=== PATIENT | female | born 1985 | race Caucasian/White ===

== ENCOUNTER → 2016-10-31 10:14 | Outpatient (CLI) | payer MEDICAID ==
[2014-02-09 11:55] VITALS: BMI 26.7
[~2016-10-31 10:14] MED LIST: HYDROCODON-ACE1 EAC7 PO; INDERAL10 MG PO; SPRINTEC1 TAB PO; SYNTHROID125 MCG PO; WELLBUTRIN XL150 M1 PO; XANAX0.25 MG PO
[2016-10-31 13:32] LABS: APPEARANCE CLEAR (CLEAR); BACTERIA FEW /hpf (NONE SEEN); BILIRUBIN NEGATIVE (NEGATIVE); COLOR YELLOW (YELLOW); EPITHELIAL CELLS 0-5 /hpf (0-5); GLUCOSE NEGATIVE (NEGATIVE); KETONE NEGATIVE (NEGATIVE); LEUKOCYTE ESTERASE TRACE (NEGATIVE); MUCUS >1+ /lpf (NONE SEEN); NITRITE NEGATIVE (NEGATIVE); PROTEIN NEGATIVE (NEGATIVE); RED CELLS - URINE 0-5 /hpf (0-5); UROBILINOGEN NORMAL (NORMAL); WHITE CELLS - URINE OCC /hpf (0-5)
== END | disposition home or self-care (01) ==
LOC: D.LDO 10:14
PROVIDERS: Obstetrics & Gynecology
DX: O26.852 Spotting complicating pregnancy, second trimester (principal); Z3A.23 23 weeks gestation of pregnancy

== ENCOUNTER → 2016-12-08 13:08 | Outpatient (CLI) | payer MEDICAID ==
[2014-02-09 11:55] VITALS: BMI 26.7
[2016-12-08 13:48] LABS: BASOPHILS 0.2 % (0-2); EOSINOPHILS 0.9 % (0-7); HEMATOCRIT 31.8 % (36.0-48.0); HEMOGLOBIN 10.9 g/dL (12-16); IMMATURE GRANULOCYTES 0.6 % (0-5); LYMPHOCYTES 13.4 % (15-50); MCH 31.1 pg (26.0-34.0); MCHC 34.3 g/dL (31.0-37.0); MCV 90.9 fL (80.0-100.0); MEAN PLATELET VOLUME 9.6 fL (7.4-10.4); MONOCYTES 4.9 % (2-11); PLATELET COUNT 198 10x3/uL (130-400); RDW 12.8 % (11.5-14.5)
[2016-12-08 13:52] LABS: APPEARANCE HAZY (CLEAR); BILIRUBIN NEGATIVE (NEGATIVE); COLOR YELLOW (YELLOW); GLUCOSE NEGATIVE (NEGATIVE); KETONE NEGATIVE (NEGATIVE); LEUKOCYTE ESTERASE TRACE (NEGATIVE); NITRITE NEGATIVE (NEGATIVE); PROTEIN TRACE mg/dL (NEGATIVE); UROBILINOGEN NORMAL (NORMAL)
[2016-12-08 14:05] LABS: RED CELLS - URINE 0-5 /hpf (0-5); WHITE CELLS - URINE 25-50 /hpf (0-5)
[2016-12-08 14:06] LABS: BACTERIA MANY /hpf (NONE SEEN); HYALINE CAST RARE /lpf (NONE SEEN); MUCUS <1+ /lpf (NONE SEEN)
[2016-12-08 14:11] LABS: CALC OSMOLALITY 278 mosm/kg (275-300); CALCIUM 8.5 mg/dL (8.5-10.1); CHLORIDE - SERUM 106 mmol/L (98-107); CREATININE - SERUM 0.7 mg/dL (0.6-1.3); GLUCOSE 97 mg/dL (74-106); POTASSIUM - SERUM 4.1 mmol/L (3.5-5.1); SODIUM 141 mmol/L (136-145); UREA NITROGEN 7 mg/dL (7-18); eGFR NON AFRICAN AMERICAN > 90 mL/min (90-120)
== END | disposition home or self-care (01) ==
LOC: D.LDO 13:08
PROVIDERS: Obstetrics & Gynecology
DX: Z34.83 Encounter for supervision of other normal pregnancy, third trimester (principal); Z3A.28 28 weeks gestation of pregnancy; R42 Dizziness and giddiness

== ENCOUNTER → 2016-12-17 14:28 | Outpatient (CLI) | payer MEDICAID ==
[2014-02-09 11:55] VITALS: BMI 26.7
[2016-12-17 15:19] LABS: APPEARANCE CLEAR (CLEAR); COLOR YELLOW (YELLOW)
[2016-12-17 15:20] LABS: BILIRUBIN NEGATIVE (NEGATIVE); GLUCOSE NEGATIVE (NEGATIVE); KETONE NEGATIVE (NEGATIVE); LEUKOCYTE ESTERASE NEGATIVE (NEGATIVE); NITRITE NEGATIVE (NEGATIVE); PROTEIN NEGATIVE (NEGATIVE); UROBILINOGEN NORMAL (NORMAL)
== END | disposition home or self-care (01) ==
LOC: D.LDO 14:28
PROVIDERS: Obstetrics & Gynecology
DX: Z34.83 Encounter for supervision of other normal pregnancy, third trimester (principal); Z3A.29 29 weeks gestation of pregnancy; R10.9 Unspecified abdominal pain; R42 Dizziness and giddiness

== ENCOUNTER → 2016-12-21 13:06 | Outpatient (CLI) | payer MEDICAID ==
[2014-02-09 11:55] VITALS: BMI 26.7
== END | disposition home or self-care (01) ==
LOC: D.LDO 13:06
DX: Z34.83 Encounter for supervision of other normal pregnancy, third trimester (principal); Z3A.30 30 weeks gestation of pregnancy; R03.0 Elevated blood-pressure reading, without diagnosis of hypertension

== ENCOUNTER → 2016-12-28 09:40 | Outpatient (CLI) | payer MEDICAID ==
[2014-02-09 11:55] VITALS: BMI 26.7
[2016-12-28 11:01] LABS: APPEARANCE CLEAR (CLEAR); BILIRUBIN NEGATIVE (NEGATIVE); COLOR YELLOW (YELLOW); GLUCOSE NEGATIVE (NEGATIVE); KETONE NEGATIVE (NEGATIVE); LEUKOCYTE ESTERASE TRACE (NEGATIVE); NITRITE NEGATIVE (NEGATIVE); PROTEIN NEGATIVE (NEGATIVE); UROBILINOGEN NORMAL (NORMAL)
== END | disposition home or self-care (01) ==
LOC: D.LDO 09:40
PROVIDERS: Obstetrics & Gynecology
DX: O36.8130 Decreased fetal movements, third trimester, not applicable or unspecified (principal); Z3A.31 31 weeks gestation of pregnancy; R53.81 Other malaise

== ENCOUNTER → 2017-01-01 09:34 | Outpatient (CLI) | payer MEDICAID ==
[2014-02-09 11:55] VITALS: BMI 26.7
== END | disposition home or self-care (01) ==
LOC: D.LDO 09:34
DX: Z34.83 Encounter for supervision of other normal pregnancy, third trimester (principal); Z3A.32 32 weeks gestation of pregnancy

== ENCOUNTER → 2017-01-23 11:54 | Outpatient (CLI) | payer MEDICAID ==
[2014-02-09 11:55] VITALS: BMI 26.7
[2017-01-23 12:50] LABS: APPEARANCE CLEAR (CLEAR); BILIRUBIN NEGATIVE (NEGATIVE); COLOR STRAW (YELLOW); GLUCOSE NEGATIVE (NEGATIVE); KETONE NEGATIVE (NEGATIVE); LEUKOCYTE ESTERASE NEGATIVE (NEGATIVE); NITRITE NEGATIVE (NEGATIVE); PROTEIN NEGATIVE (NEGATIVE); SPECIFIC GRAVITY 1.005 (1.005-1.020); UROBILINOGEN NORMAL (NORMAL)
== END | disposition home or self-care (01) ==
LOC: D.LDO 11:54
PROVIDERS: Obstetrics & Gynecology
DX: O26.853 Spotting complicating pregnancy, third trimester (principal); Z3A.35 35 weeks gestation of pregnancy

== ENCOUNTER → 2017-02-01 11:44 | Outpatient (CLI) | payer MEDICAID ==
[2014-02-09 11:55] VITALS: BMI 26.7
== END | disposition home or self-care (01) ==
LOC: D.LDO 11:44
DX: Z34.93 Encounter for supervision of normal pregnancy, unspecified, third trimester (principal); Z3A.36 36 weeks gestation of pregnancy; R03.0 Elevated blood-pressure reading, without diagnosis of hypertension

== ENCOUNTER 2017-02-19 05:09 | Inpatient (IN) | payer MEDICAID ==
[2017-02-19] MEDS ORDERED: PROTONIX40 MG PO (05:32)
[2017-02-19 05:59] VITALS: BP 141/84; BMI 34.1
[2017-02-19 06:29] LABS: HEMOGLOBIN 10.6 g/dL (12-16); MCH 27.4 pg (26.0-34.0); MCHC 32.1 g/dL (31.0-37.0); MCV 85.3 fL (80.0-100.0); MEAN PLATELET VOLUME 10.3 fL (7.4-10.4); RBC 3.87 10x6/uL (4.00-5.40); RDW 13.8 % (11.5-14.5); WBC 8.7 10x3/uL (4.8-10.8)
[2017-02-19 07:58] LABS: APPEARANCE CLOUDY (CLEAR); BILIRUBIN NEGATIVE (NEGATIVE); COLOR YELLOW (YELLOW); GLUCOSE 100 mg/dL (NEGATIVE); KETONE SMALL mg/dL (NEGATIVE); NITRITE NEGATIVE (NEGATIVE); PROTEIN NEGATIVE (NEGATIVE); SPECIFIC GRAVITY 1.015 (1.005-1.020); UROBILINOGEN NORMAL (NORMAL)
[2017-02-19 07:59] LABS: BACTERIA MANY /hpf (NONE SEEN); MUCUS <1+ /lpf (NONE SEEN)
--- NOTE | 2017-02-19 22:00 | NUR ---
ROUNDS MADE. PT LYING AWAKE IN BED WATCHING TV. PAIN AND NEEDS ASSESSED. PT REPORTS LOWER BACK PAIN IS BETTER NOW. DENIES NEEDS. REPORTS SOME TINGLING REMAINS TO LLE. SPOUSE AT PT'S BEDSIDE.
--- NOTE | 2017-02-19 22:48 | NUR ---
PT'S SPOUSE TO NURSING DESK. REPORTS PT IS NOW C/O BURNING AT [facility]. REQUEST ICE CAP. ICE CAP PROVIDED W/ADDITIONAL ONES FOR LATER ALONG WITH DERMAPLAST SPRAY. TEACHING PROVIDED. FRESH ICE WATER SERVED IN [facility]. NO FURTHER NEEDS VOICED AT THIS TIME.
--- NOTE | 2017-02-19 23:40 | NUR ---
PT CALLS NURSING STATION. REPORTS ABD CRAMPING. REQUEST ADDITIONAL PAIN MEDICATION. NORCO 5/325MG ONE TAB PO GIVEN FOR PAIN RATED 5/10. NO FURTHER NEEDS VOICED AT THISTIME.
--- NOTE | 2017-02-20 01:00 | NUR ---
ROUNDS MADE. PT LYING AWAKE IN BED IN SUPINE POSITION WITH LIGHTS DOWN. DENIES NEEDS. REPORTS PAIN IS BETTER. RATES 2/10. SPOUSE SLEEPING ON PULL CHAIR.
--- NOTE | 2017-02-20 02:59 | NUR ---
ROUNDS MADE. PT LYING SUPINE IN BED W/EYES CLOSED. RESP EVEN. NO DISTRESS NOTED. PT LEFT UNDISTURBED AT THIS TIME.
--- NOTE | 2017-02-20 04:00 | NUR ---
ROUNDS MADE. PT CURRENTLY NURSING INFANT. PAIN AND NEEDS ASSESSED. PT REQUEST MOTRIN FOR CRAMPING AND FRESH ICE WATER. MOTRIN 600MG PO ADMIN AND ICE WATER SERVED. NO FURTHER NEEDS VOICED AT THIS TIME.
--- NOTE | 2017-02-20 06:45 | NUR ---
ROUNDS MADE. PT SITTING UP IN BED W/INFANT TO BREAST. PAIN AND NEEDS ASSESSED. PT DENIES NEEDS OR PAIN AT PRESENT.
[2017-02-20 07:27] LABS: RAPID PLASMA REAGIN Non Reactive (Non Reactive)
[2017-02-20 07:36] VITALS: BP 129/87
--- NOTE | 2017-02-20 07:59 | NUR ---
RCVD PT FROM David TOBAR RN. PT SITTING UP IN BED EATING BREAKFAST AT THIS TIME AAOX3. RATES PAIN 1/10 AND TOLERABLE AT THIS TIME. PT REPORTS WILL SHOWER WHEN FINISHED WITH MEAL. BREATH SOUNDS CLEAR & UNLABORED X2, HR-RRR, PPP, BOWEL SOUNDS ACTIVE X4, PIV SL IN LT FOREARM WITH NO SIGNS OF ERYTHEMA OR EDEMA NOTED TO SITE. NO EDEMA NOTED TO BLE. FUNDUS FIRM, U/2. SCANT LOCHIA RUBRA NOTED TO PERIPAD. PT DENIES FURTHER NEEDS. BED LOW, WHEELS LOCKED, CL IN REACH, SIDE RAILS UP X2.
--- NOTE | 2017-02-20 08:22 | NUR ---
ROUNDS MADE. PT SITTING UP IN BED VISITING WITH GUESTS IN ROOM. PT DENIES PAIN OR NEEDS AT THIS TIME. WILL CONT TO MONITOR.
--- NOTE | 2017-02-20 09:14 | NUR ---
ROUNDS MADE. PT INQUIRES ABOUT MOTRIN AVAILABILITY. ADV PT SHE CAN HAVE IT IN 1 HR. PT VERBALIZED UNDERSTANDING AND DENIES FURTHER NEEDS AT THIS TIME. WILL CONT TO MONITOR.
--- NOTE | 2017-02-20 10:09 | NUR ---
MOTRIN 600MG X1 TAB GIVEN FOR PAIN RATED 2/10 DESCRIBED CRAMPING AT THIS TIME. PT DESIRES ASSISTANCE. SAME PROVIDED PER THIS RN. LATCHED ONTO LT BREAST AT THIS TIME. EDU PT ON FEEDING 15-20 MINS EACH SIDE AND TO CALL IF ASSISTANCE IS NEEDED WHEN RELATCHING. PT VERBALIZED UNDERSTANDING AND DENIES FURTHER NEEDS. WILL CONT TO MONITOR.
[2017-02-20 10:28] LABS: BASOPHILS 0.1 % (0-2); HEMATOCRIT 26.5 % (36.0-48.0); HEMOGLOBIN 8.6 g/dL (12-16); IMMATURE GRANULOCYTES 0.2 % (0-5); LYMPHOCYTES 18.1 % (15-50); MCH 27.9 pg (26.0-34.0); MCHC 32.5 g/dL (31.0-37.0); MEAN PLATELET VOLUME 10.1 fL (7.4-10.4); MONOCYTES 5.9 % (2-11); NEUTROPHILS 74.7 % (40-80); RDW 13.9 % (11.5-14.5); WBC 8.7 10x3/uL (4.8-10.8)
--- NOTE | 2017-02-20 10:42 | NUR ---
PAIN REASSESSMENT COMPLETE. PT REPORTS CRAMPING STILL NOTICABLE AND IS AT THIS TIME. TEACHING PROVIDED ON BF INCREASING CRAMPING. PT VERBALIZES UNDERSTANDING AND DENIES FURTHER NEEDS. WILL CONT TO MONITOR.
[2017-02-20 10:51] LABS: PLATELET COUNT 202 10x3/uL (130-400); RBC 3.08 10x6/uL (4.00-5.40)
--- NOTE | 2017-02-20 12:58 | NUR ---
NORCO 5/325MG X1 TAB GIVEN PER David CABRAL, STUDENT RN AT THIS TIME. PT RATES PAIN 5/10 DESCRIBED CRAMPING WHILE INFANT. PT DENIES FURTHER NEEDS. WILL CONT TO MONITOR.
--- NOTE | 2017-02-20 13:36 | NUR ---
PAIN REASSESSMENT COMPLETE. PT RATES PAIN 1/10 AT THIS TIME AND DENIES FURTHER NEEDS.
--- NOTE | 2017-02-20 14:27 | NUR ---
ROUNDS MADE. PT VISITING WITH GUESTS IN ROOM. IN GUEST'S ARMS. ICE WATER PROVIDED PER PT REQUEST. PT DENIES FURTHER NEEDS OR PAIN AT THIS TIME.
--- NOTE | 2017-02-20 15:30 | NUR ---
PT RINGS CL. RN TO BEDSIDE. PT REPORTS CRAMPING AND INQUIRES ABOUT PAIN MEDICATION. ADV PT MOTRIN IS AVAILABLE IN 30 MINS. PT VERBALIZED UNDERSTANDING AND DENIES FURTHER NEEDS.
--- NOTE | 2017-02-20 15:41 | NUR ---
MOTRIN 600MG X1 TAB GIVEN PER PT REQUEST FOR PAIN RATED 2/10 AT THIS TIME DESCRIBED CRAMPING. PT DENIES FURTHER NEEDS. WILL CONT TO MONITOR.
--- NOTE | 2017-02-20 16:36 | NUR ---
ROUNDS MADE. PT RATES PAIN 0/10 AT THIS TIME AND DENIES FURTHER NEEDS. WILL CONT TO MONITOR.
--- NOTE | 2017-02-20 17:15 | NUR ---
ROUNDS MADE. MEAL TRAY SERVED AT THIS TIME. PT DENIES PAIN OR CURRENT NEEDS. WILL CONT TO MONITOR.
--- NOTE | 2017-02-20 18:35 | NUR ---
PT REPORTS LABIAL IRRITATION DUE TO LACERATION. LABIA INSPECTED WITH NO EDEMA NOTED TO SITE. ADV PT TO USE PERIBOTTLE WHEN VOIDING. PT VERBALIZED UNDERSTANDING.
[2017-02-20 19:10] VITALS: BP 139/81
--- NOTE | 2017-02-20 19:10 | NUR ---
AWAKE DURING INITIAL ROUNDS. INTRODUCED SELF. V/S TAKEN. ASSESSMENT DONE. STATUS POST VAG DELIVERY WITH REPAIRED LABIAL LACERATION--DAY 1. A1. DOIDING WELL, KEITH ROMERO LIGHT PER PATIENT. UTERINE CRAMPING WHEN . AT BREAT AT THIS TIME. BONDING WELL. FOB IN THE ROOM.
--- NOTE | 2017-02-20 19:21 | NUR ---
NORCO 5/325 1tab PO GIVEN FOR PAIN CONTROL FROM UTERINE CRAMPING.
--- NOTE | 2017-02-20 19:25 | NUR ---
AWAKE DURING BEDSIDE SHIFT REPORT/ROUNDS. INTRODUCED SELF. V/S TAKEN. ASSESSMENT DONE. STATUS POST REPEAT C/S + BILATERAL TUBAL LIGATION TODAY. . LOW TRANSVERSE INCISION WITH ST-STRIPS INTACT. IBF--NS + 20units PITOCIN TO R HAND. IV SITE OK. AVILES CATH TO DRAINAGE BAG PATENT. SCD's TO BOTH LOWER EXTREMITIES TO PREVENT DVT. INFANT IN THE ROOM. FAMILY/FRIENDS VISITING. ON DEMEROL BOTANY LABORATORY ASSISTANT FOR PAIN MANAGEMENT.
--- NOTE | 2017-02-20 21:51 | NUR ---
CALL LIGHT ANSWERED. MOTRIN 600mg 1tab PO GIVEN FOR PAIN CONTROL. INFANT IN HER ARMS. FOB HERE.
--- NOTE | 2017-02-20 22:40 | NUR ---
HER BABY. GOOD -MATERNAL BONDING.
[2017-02-21 00:15] VITALS: BP 135/76
--- NOTE | 2017-02-21 02:00 | NUR ---
EYES CLOSED. LEFT UNDISTURBED.
--- NOTE | 2017-02-21 04:00 | NUR ---
INFANT. BONDING WELL.
--- NOTE | 2017-02-21 06:13 | NUR ---
CALL LIGHT ANSWERED. PAIN LEVEL 5/10 FROM UTERINE CRAMPING AND PERINEUM. MOTRIN 600mg 1 tab / NORCO 5/325 1tab PO GIVEN FOR PAIN MANAGEMENT. EPIFOAM GIVEN WITH INSTRUCTIONS ON HOW TO USE. SLEPT ON AND OFF DURING THE NIGHT. CONTINUING PLAN OF CARE.
--- NOTE | 2017-02-21 07:30 | NUR ---
PT IS RECEIVED THIS AM SITTING UP IN BED. BABY AT BEDSIDE. PT STATES THAT HER PAIN IS ABOUT A 1. GEN- AWAKE AND ALERT- LUNGS- CLEAR. HEART- RRR. ABD- SOFT, WITH TENDERNESS NOTED. SMALL LOCIA RUBRA. BS+. EXT- MINIMAL EDEMA LE. SALINE LOCK NOTED R WRIST. BED IS LOW, SIDE RAILS UP X 2 AND CALL LIGHT IN REACH.
[2017-02-21 07:31] VITALS: BP 127/75
--- NOTE | 2017-02-21 08:02 | NUR ---
SALINE LOCK D'CD. TIP INTACT.
--- NOTE | 2017-02-21 09:17 | NUR ---
PT WOULD LIKE TO GO HOME. CALLED DR. JIMÉNEZ. HE STATES THAT HE HAS SEEN PT AND THAT SHE MAY BE DISCHARGED.
--- NOTE | 2017-02-21 09:32 | NUR ---
DR MORAN, SCANNING SUPERVISOR IS HERE TO SEE PT. SHE WANTS PT TO SUPPLEMENT TOE NEXT 2 FEEDINGS AND IF BABY DOES WELL THEN THEY CAN GO HOME.
[2017-02-21] MEDS ORDERED: HYDROCODON-ACE1 EAC7 PO (09:34)
[2017-02-21] MEDS ORDERED: IBUPROFEN600 MG PO (09:34)
--- NOTE | 2017-02-21 11:35 | NUR ---
PT REQUESTED PAIN MED. GIVEN.
--- NOTE | 2017-02-21 12:30 | NUR ---
pt is resting in bed. and baby at bedside. offers no complaints
--- NOTE | 2017-02-21 13:30 | NUR ---
PT WAS TRANSFERRED TO [facility]. PT IN BED. BED IS LOW, SIDE RAILS UP X 2 AND CALL LIGHT IN REACH.
--- NOTE | 2017-03-26 09:56 | DS ---
PATIENT:MAURILIO ZAMORA :83 MEDICAL RECORD: [id number] DISCHARGE SUMMARY ADMISSION DATE: 02/19/17 DISCHARGE DATE: 02/21/17 DATE OF ADMISSION: 02/19/2017 HOSPITAL COURSE: A 31-year-old G2, P1 at 39 weeks and 0 days, admitted for induction of labor per patient wishes. The patient was noted to be A positive, group B strep negative and rubella immune. PAST MEDICAL HISTORY: Significant for: 1. PENICILLIN ALLERGY. 2. Hypothyroidism. 3. History of an abnormal Pap. 4. Gastroesophageal reflux disease. 5. Depression/anxiety. PAST SURGICAL HISTORY: The patient reported a surgical history significant for a partial thyroidectomy. ALLERGIES: THE PATIENT REPORTED ALLERGIES TO PENICILLIN. MEDICATIONS: Include Protonix and Synthroid. FAMILY HISTORY: The patient reported no significant family history. SOCIAL HISTORY: Significant for being a former tobacco user. PHYSICAL EXAMINATION: VITAL SIGNS: On initial assessment, the patient was noted to be mildly tachycardic at admission, which resolved very soon thereafter. The patient was with elevated blood pressure of 141/84. Both of these symptoms on admission were felt to be due to anxiety as the patient became normotensive with a normal rate and rhythm very soon after admission. LUNGS: Clear to auscultation. CARDIOVASCULAR: With normal heart sounds, slight tachycardia at admission, which resolved. LUNGS: Clear to auscultation. PELVIC: Uterus was appropriately sized and nontender. EXTREMITIES: Lower extremities were free of Homans sign. Initial assessment with a category 1 tracing in the 140s with moderate variability and hemoglobin was found to be 10.6 with a platelet count of 257. ASSESSMENT AND PLAN: At that time: 1. Term intrauterine at 39 weeks. 2. Induction of labor per patient wishes. 3. Anemia. 4. Tachycardia admission, which resolved at the next vitals check. 5. PENICILLIN ALLERGY. 6. Hypothyroidism. 7. History of depression and anxiety. Assessment and plan at that time was for Pitocin induction of labor, rupture of membranes when appropriate, tachycardia upon admission, now which has been DISCHARGE SUMMARY REPORT [id number] MAURILIO ZAMORA resolved. No evidence of lower extremity DVT. with a category 1 tracing. The patient progressed on Pitocin to 4 cm at which point spontaneous rupture of membranes occurred with clear fluid and fetus with a category 1 tracing. The patient progressed to the second stage of labor and had a spontaneous vaginal delivery over an intact perineum. Delivery note is as on the chart. The patient did well overnight on day #0. On the morning of day #1, was doing well, tolerating p.o. pain meds and general diet, ambulating and voiding freely. Vital signs are stable. The patient was afebrile. Hemoglobin was found to be stable. The patient stayed overnight and on day #2. The patient continued to do well. Vital signs are stable. The patient was afebrile. Hemoglobin 8.6. Uterus is infraumbilical and nontender with minimal lochia. Plan at that time for discharge home with instructions to follow up in 4 weeks. TRANSINT:[id number] Voice Confirmation ID: [id number] DOCUMENT ID: [id number] MIKEL JIMÉNEZ MD at [id number] CC: [id number] DICTATION DATE: 03/24/17 1333 LIMOUSINE RENTAL CLERK: 03/25/17 0039 DIS IN 02/21/17 [id number] [place] [address]
== END 2017-02-21 14:00 | disposition home or self-care (01) | DRG 775 ==
LOC: D.LD 05:09 → D.WS 21:15
PROVIDERS: ADMIT Obstetrics & Gynecology
PROC: 10E0XZZ Delivery of Products of Conception, External Approach (ICD-10-PCS; principal; 2017-02-19)
PROC: 0KQM0ZZ Repair Perineum Muscle, Open Approach (ICD-10-PCS; 2017-02-19)
DX: O99.02 Anemia complicating childbirth (principal); Z37.0 Single live birth; Z3A.39 39 weeks gestation of pregnancy; O99.214 Obesity complicating childbirth; E66.01 Morbid (severe) obesity due to excess calories; Z68.32 Body mass index [BMI] 32.0-32.9, adult; O75.89 Other specified complications of labor and delivery; R00.0 Tachycardia, unspecified; E03.9 Hypothyroidism, unspecified; O42.92 Full-term premature rupture of membranes, unspecified as to length of time between rupture and onset of labor

== ENCOUNTER 2018-07-29 15:00 | Emergency (ER) | payer BC ==
[~2018-07-29] VITALS: Ht 174 cm; Wt 90.9 kg
[~2018-07-29 15:00] MED LIST changes: +IBUPROFEN600 MG PO; +PROTONIX40 MG PO
[2018-07-29 15:11] VITALS: Ht 174 cm; Wt 90.9 kg
[2018-07-29] MEDS ORDERED: SYNTHROID150 MCG (15:14)
[2018-07-29 16:02] LABS: BASOPHILS 0.4 % (0-2); EOSINOPHILS 0 % (0-7); HEMATOCRIT 40.4 % (36.0-48.0); IMMATURE GRANULOCYTES 0.1 % (0-5); LYMPHOCYTES 24.3 % (15-50); MCH 31.4 pg (26.0-34.0); MCHC 34.7 g/dL (31.0-37.0); MCV 90.6 fL (80.0-100.0); MEAN PLATELET VOLUME 9.7 fL (7.4-10.4); NEUTROPHILS 68.2 % (40-80); PLATELET COUNT 234 10x3/uL (130-400); RBC 4.46 10x6/uL (4.00-5.40); WBC 6.8 10x3/uL (4.8-10.8)
[2018-07-29 16:14] LABS: ALBUMIN 3.9 g/dL (3.4-5.0); ALKALINE PHOSPHATASE 92 U/L (46-116); ALT (SGPT) 405 U/L (10-68); BILIRUBIN - TOTAL 0.26 mg/dL (0.2-1.3); CALC OSMOLALITY 279 mosm/kg (275-300); CALCIUM 8.9 mg/dL (8.5-10.1); CARBON DIOXIDE 28.4 mmol/L (21.0-32.0); CHLORIDE - SERUM 104 mmol/L (98-107); CREATININE - SERUM 0.7 mg/dL (0.6-1.3); GLUCOSE 100 mg/dL (74-106); POTASSIUM - SERUM 3.9 mmol/L (3.5-5.1); PROTEIN - SERUM 7.4 g/dL (6.4-8.2); SODIUM 141 mmol/L (136-145); UREA NITROGEN 9 mg/dL (7-18); eGFR NON AFRICAN AMERICAN > 90 mL/min (90-120)
[2018-07-29 16:18] LABS: APPEARANCE CLEAR (CLEAR); BILIRUBIN NEGATIVE (NEGATIVE); COLOR YELLOW (YELLOW); GLUCOSE NEGATIVE (NEGATIVE); KETONE NEGATIVE (NEGATIVE); NITRITE NEGATIVE (NEGATIVE); PROTEIN NEGATIVE (NEGATIVE); UROBILINOGEN NORMAL (NORMAL)
[2018-07-29 16:19] LABS: HCG SERUM POSITIVE (NEGATIVE)
[2018-07-29 16:39] LABS: HCG - QUANTITATIVE (MATERNAL) 3952 mIU/mL
[2018-07-29 17:38] VITALS: BP 138/75
[2018-07-31 14:19] LABS: HEPATITIS C ANTIBODY <0.1 S/CO RAT (0.0-0.9)
== END 2018-07-29 17:38 | disposition home or self-care (01) ==
LOC: D.ER 15:00
PROVIDERS: Family Medicine
DX: O20.9 Hemorrhage in early pregnancy, unspecified (principal); Z3A.01 Less than 8 weeks gestation of pregnancy; R74.8 Abnormal levels of other serum enzymes

== ENCOUNTER → 2019-05-07 07:34 | Outpatient (CLI) | payer BC, OTHER ==
[~2019-05-07 07:34] MED LIST changes: +SYNTHROID150 MCG
[2019-05-07 08:22] LABS: APPEARANCE CLEAR (CLEAR); BACTERIA FEW /hpf (NEGATIVE); BILIRUBIN NEGATIVE (NEGATIVE); COLOR YELLOW (YELLOW); EPITHELIAL CELLS OCC /hpf (0-5); GLUCOSE NEGATIVE (NEGATIVE); KETONE NEGATIVE (NEGATIVE); MUCUS <1+ /lpf (NONE SEEN); NITRITE NEGATIVE (NEGATIVE); PROTEIN TRACE mg/dL (NEGATIVE); RED CELLS - URINE OCC /hpf (0-5); SPECIFIC GRAVITY 1.005 (1.005-1.020); UROBILINOGEN NORMAL (NORMAL); WHITE CELLS - URINE 0-5 /hpf (NEGATIVE)
== END | disposition home or self-care (01) ==
LOC: D.LDO 07:34
PROVIDERS: ATTEND Obstetrics & Gynecology
DX: O36.8190 Decreased fetal movements, unspecified trimester, not applicable or unspecified (principal); Z3A.00 Weeks of gestation of pregnancy not specified